=== PATIENT | female | born 1990 | race Caucasian/White ===

== ENCOUNTER 2022-02-18 06:25 | Inpatient (IN) | payer MEDICAID ==
[~2022-02-18 06:25] MED LIST: Acetaminophen 500 MG Tab PO ONE; Celecoxib 200 MG Cap PO ONE; Dextrose 5%-Lactated Ringers 1,000 ML IV SCH; Scopolamine 1.5 MG Transdermal Patch TRDERM SCH
[2022-02-18] MEDS ORDERED: Lidocaine 1% with EPINEPHrine 1:100,000 50 ML MDV ONE (07:01)
[2022-02-18] MEDS ORDERED: Bupivacaine 0.5% 30 ML SDV ONE (07:01)
[2022-02-18] MEDS ORDERED: cefOXitin 2 GM Vial ONE (07:01)
[2022-02-18] MEDS ORDERED: cefOXitin 2 GM in Sodium Chloride 0.9% 50 ML IV ONE (07:30)
[2022-02-18] MEDS ORDERED: fentaNYL 250 MCG/5 ML SDV ONE ×2 (07:32→08:46)
[2022-02-18] MEDS ORDERED: Neostigmine Methylsulfate 1 MG/ML 5 ML Syringe ONE (07:33)
[2022-02-18] MEDS ORDERED: Propofol 200 MG/20 ML SDV ONE (07:33)
[2022-02-18] MEDS ORDERED: Ondansetron 4 MG/2 ML SDV ONE (07:33)
[2022-02-18] MEDS ORDERED: Succinylcholine 200 MG/10 ML MDV ONE (07:33)
[2022-02-18] MEDS ORDERED: Dexamethasone 4 MG/ML SDV ONE (07:33)
[2022-02-18] MEDS ORDERED: Rocuronium 50 MG/5 ML Vial ONE (07:33)
[2022-02-18] MEDS ORDERED: Glycopyrrolate 0.2 MG/ML 5 ML MDV ONE (07:33)
[2022-02-18] MEDS ORDERED: Ketamine 500 MG/5 ML MDV IV SCH (08:00)
[2022-02-18] MEDS ORDERED: Ketamine 16 MG in Sodium Chloride 0.9% 19.84 ML IV SCH (08:00)
[2022-02-18] MEDS ORDERED: Labetalol 20 MG/4 ML Syringe ONE (09:03)
[2022-02-18] MEDS ORDERED: Sugammadex Sodium 200 MG/2 ML VIAL ONE (09:52)
[2022-02-18] MEDS ORDERED: Ondansetron 4 MG/2 ML SDV IVPUSH ONE (10:02)
[2022-02-18] MEDS ORDERED: hydrOXYzine HCL 100 MG/2 ML SDV IM ONE (10:16)
[2022-02-18] MEDS ORDERED: fentaNYL 50 MCG/ML SDV IM ONE (10:17)
[2022-02-18] MEDS ORDERED: fentaNYL 50 MCG/ML SDV IVPUSH ONE (10:30)
[2022-02-18] MEDS ORDERED: Cyclobenzaprine 10 MG Tab PO PRN (11:11)
[2022-02-18] MEDS ORDERED: traMADol 50 MG Tab PO PRN (12:00)
[2022-02-18] MEDS ORDERED: Labetalol 20 MG/4 ML Syringe IVPUSH PRN (12:00)
[2022-02-18] MEDS ORDERED: Metoclopramide 10 MG/2 ML SDV IVPUSH PRN (12:00)
[2022-02-18] MEDS ORDERED: HYDROmorphone 0.5 MG/0.5 ML Syringe IVPUSH PRN (12:00)
[2022-02-18] MEDS ORDERED: HYDROmorphone 1 MG/ML Syringe IV PRN (12:00)
[2022-02-18] MEDS ORDERED: Acetaminophen 500 MG Tab PO PRN (12:00)
[2022-02-18] MEDS ORDERED: Ondansetron 4 MG/2 ML SDV IVPUSH PRN (12:00)
[2022-02-18] MEDS ORDERED: oxyCODONE 5 MG Tab PO PRN (12:00)
[2022-02-18] MEDS ORDERED: diphenhydrAMINE 50 MG/ML SDV IVPUSH PRN (12:00)
[2022-02-18] MEDS ORDERED: hydrOXYzine HCL 100 MG/2 ML SDV IM PRN (12:00)
[2022-02-18] MEDS ORDERED: Pantoprazole 40 MG Vial IVPUSH SCH (12:00)
[2022-02-18] MEDS: cefOXitin 2 GM in Sodium Chloride 0.9% 50 ML IV SCH ×2 (13:20→20:06)
[2022-02-18] MEDS: SCOPOLAMINE PATCH CHECK TOP SCH (13:23)
[2022-02-18] MEDS ORDERED: Acetaminophen 500 MG Tab PO SCH (14:00)
[2022-02-18] MEDS: Acetaminophen 500 MG Tab PO SCH (15:24)
[2022-02-18] MEDS: Heparin Sodium 5,000 Units/ML Vial SUBCUT SCH (15:24)
[2022-02-18] MEDS ORDERED: MVI, Adult with Vitamin K 10 ML, Thiamine 200 MG, Zinc/Copper/Manganese/Selenium 1 ML i... IV SCH ×4 (16:00)
[2022-02-18] MEDS: Dextrose 5%-Lactated Ringers 1,000 ML IV SCH (20:39)
[2022-02-19] MEDS: Acetaminophen 500 MG Tab PO SCH ×3 (00:29→16:10)
[2022-02-19] MEDS: cefOXitin 2 GM in Sodium Chloride 0.9% 50 ML IV SCH ×4 (00:30→13:20)
[2022-02-19] MEDS: Dextrose 5%-Lactated Ringers 1,000 ML IV SCH ×2 (02:59→08:42)
[2022-02-19] MEDS ORDERED: Iopamidol 612 MG/ML 50 ML SDV PO STA (03:46)
[2022-02-19] MEDS: Heparin Sodium 5,000 Units/ML Vial SUBCUT SCH ×2 (04:23→16:09)
[2022-02-19] MEDS: Pantoprazole 40 MG Tab.CR PO SCH (08:41)
[2022-02-19] MEDS: Celecoxib 200 MG Cap PO SCH ×2 (08:42→21:04)
[2022-02-19] MEDS: SCOPOLAMINE PATCH CHECK TOP SCH (11:00)
[2022-02-19] MEDS ORDERED: MVI, Adult with Vitamin K 10 ML, Thiamine 200 MG, Zinc/Copper/Manganese/Selenium 1 ML i... IV SCH ×4 (16:00)
[2022-02-20] MEDS: Acetaminophen 500 MG Tab PO SCH ×2 (00:57→08:32)
[2022-02-20] MEDS: Dextrose 5%-Lactated Ringers 1,000 ML IV SCH (00:58)
[2022-02-20] MEDS: Heparin Sodium 5,000 Units/ML Vial SUBCUT SCH (04:01)
[2022-02-20] MEDS: Pantoprazole 40 MG Tab.CR PO SCH (08:32)
[2022-02-20] MEDS: Celecoxib 200 MG Cap PO SCH (08:32)
[2022-02-20] MEDS: SCOPOLAMINE PATCH CHECK TOP SCH (08:36)
[2022-02-20] MEDS ORDERED: Magnesium Hydroxide 400 MG/5 ML Susp 30 ML Cup PO ONE (09:00)
[2022-02-20] MEDS ORDERED: Cyanocobalamin (Vitamin B12) 1,000 MCG/ML SDV IM ONE (09:00)
== END 2022-02-20 09:30 | disposition home or self-care (01) | DRG 621 ==
LOC: JP.SDSSCHI 06:25 → JP.MS 11:10
PROVIDERS: ADMIT Surgery; ATTEND Surgery
PROC: 0FB24ZX Excision of Left Lobe Liver, Percutaneous Endoscopic Approach, Diagnostic (ICD-10-PCS; principal; 2022-02-18)
PROC: 0DB64Z3 Excision of Stomach, Percutaneous Endoscopic Approach, Vertical (ICD-10-PCS; principal; 2022-02-18)
PROC: 0BUT4JZ Supplement Diaphragm with Synthetic Substitute, Percutaneous Endoscopic Approach (ICD-10-PCS; principal; 2022-02-18)
DX: E66.01 Morbid (severe) obesity due to excess calories (principal); R16.0 Hepatomegaly, not elsewhere classified; K44.9 Diaphragmatic hernia without obstruction or gangrene; I10 Essential (primary) hypertension; E28.2 Polycystic ovarian syndrome; F41.9 Anxiety disorder, unspecified; E03.9 Hypothyroidism, unspecified; D50.9 Iron deficiency anemia, unspecified; G43.909 Migraine, unspecified, not intractable, without status migrainosus; Z87.440 Personal history of urinary (tract) infections; Z90.49 Acquired absence of other specified parts of digestive tract; Z98.890 Other specified postprocedural states; Z79.899 Other long term (current) drug therapy; Z88.2 Allergy status to sulfonamides; K21.9 Gastro-esophageal reflux disease without esophagitis; E11.9 Type 2 diabetes mellitus without complications; F34.1 Dysthymic disorder; Z68.42 Body mass index [BMI] 45.0-49.9, adult
CPT/HCPCS: 36415; 74240; 82947; 83735; 84100; 84703; 86850; 86900; 86901; 88304; 88307; 88313; A9270-GY; C1713; C1781; C9113; J0171; J0330; J0694; J1100; J1644; J2405; J2704; J2710; J2765; J2795; J3010; J3410; J3411; J3420; J3490; J7121; Q9967